=== PATIENT | female | born 1970 | race Caucasian/White ===

== ENCOUNTER 2021-06-03 21:45 | Emergency (ER) | payer MEDICAID | END 2021-06-04 00:10 | disposition left against medical advice (07) | LOC: ER 21:46 | DX: J45.909 Unspecified asthma, uncomplicated (principal); Z53.21 Procedure and treatment not carried out due to patient leaving prior to being seen by health care provider ==

== ENCOUNTER 2021-12-05 02:25 | Emergency (ER) | payer MEDICAID ==
[~2021-12-05] VITALS: Ht 167.6 cm; Wt 61.9 kg
[2021-12-05 02:31] VITALS: BP 126/75
--- NOTE | 2021-12-05 02:41 | NUR ---
PT MANNERISMS ARE AGRESSIVE IN TRIAGE. PT HAS A MINOR WITH HER. DR KEATING OK'D URINE TOXICOLOGY SCREEN.
[2021-12-05 02:52] LABS: CLARITY,URINE SLIGHTLY CLOUDY (Clear); COLOR,URINE YELLOW (Yellow); GLUCOSE, URINE NEGATIVE (Neg); KETONES,URINE NEGATIVE (Neg); LEUKOCYTE ESTERASE ,URINE NEGATIVE (Neg); NITRITES, URINE NEGATIVE (Neg); OCCULT BLOOD,URINE TRACE-INTACT (Neg); PROTEIN,URINE NEGATIVE (Neg); UROBILINOGEN,URINE 0.2 E.U/dL (0.2-1.0)
[2021-12-05 03:05] LABS: URINE AMPHETAMINE SCREEN NEGATIVE (Neg); URINE BARBITUATE SCREEN NEGATIVE (Neg); URINE BENZODIAZEPINES SCREEN NEGATIVE (Neg); URINE CANNABINOID SCREEN NEGATIVE (Neg); URINE COCAINE SCREEN NEGATIVE (Neg); URINE METHADONE SCREEN NEGATIVE (Neg); URINE OPIATE SCREEN NEGATIVE (Neg); URINE PHENCYCLIDINE SCREEN NEGATIVE (Neg)
[2021-12-05 03:10] LABS: UA COLLECTION TYPE CLN CATCH MIDSTREAM
[2021-12-05 03:12] LABS: BACTERIA,URINE 1+ /HPF (Neg); MUCUS STRANDS FEW /LPF (Neg); RBC,URINE 0-2 /HPF (0-2); SQUAMOUS EPITHELIAL CELL,UR MANY /LPF (FEW); WBC,URINE 0-4 /HPF (0-4)
== END 2021-12-05 04:29 | disposition left against medical advice (07) ==
LOC: ER 02:25
DX: M54.9 Dorsalgia, unspecified (principal); Z53.21 Procedure and treatment not carried out due to patient leaving prior to being seen by health care provider
CPT/HCPCS: 80305; 81001

== ENCOUNTER 2021-12-05 16:46 | Emergency (ER) | payer MEDICAID ==
[~2021-12-05] VITALS: Ht 170.2 cm; Wt 59.1 kg
[2021-12-05 16:56] VITALS: BP 117/79
--- NOTE | 2021-12-05 17:57 | NUR ---
minor at bedside. mother has aggressive tone and short when asked about medical hx.
--- NOTE | 2021-12-05 18:39 | NUR ---
CALL [facility] ([facility]) AND SPOKE WITH DIRECTOR OF COLLECTIONS AND ARCHIVES JAMILA REPORTING CONCERN OF WELL BEING OF MINOR WITH PT ASSUMED TO BE PTS DAUGHTER.
[2021-12-05 20:22] LABS: BASOPHILS # (AUTO) 0.2 X10'3 (0-0.2); EOSINOPHILS # (AUTO) 0.3 X10'3 (0-0.9); EOSINOPHILS % (AUTO) 3.4 % (0-6); HEMATOCRIT 39.5 % (35.0-45.0); HEMOGLOBIN 13.1 g/dl (12.0-16.0); LYMPHOCYTES # (AUTO) 2.8 X10'3 (1.1-4.8); LYMPHOCYTES % (AUTO) 34.5 % (21-51); MEAN CORPUSCULAR HEMOGLOBIN 30.1 PG (27.0-31.0); MEAN CORPUSCULAR HGB CONC 33.1 g/dL (33.0-36.5); MEAN CORPUSCULAR VOLUME 91.1 FL (78-98); MONOCYTES # (AUTO) 0.5 X10'3 (0-0.9); MONOCYTES % (AUTO) 6.8 % (2-12); NEUTROPHILS # (AUTO) 4.3 X10'3 (1.8-7.7); NEUTROPHILS % (AUTO) 53.3 % (42-75); PLATELET COUNT 305 X10'3 (140-440); RED BLOOD COUNT 4.34 X10'6 (4.20-5.60); RED CELL DISTRIBUTION WIDTH 13.7 % (11.5-14.5); WHITE BLOOD COUNT 8.1 X10'3 (4.5-11.0)
[2021-12-05 20:35] LABS: ALANINE AMINOTRANSFERASE 16 U/L (12-78); ALBUMIN 3.7 G/DL (3.4-5.0); ALBUMIN/GLOBULIN RATIO 1.2 (1.1-1.5); ALKALINE PHOSPHATASE 48 IU/L (46-116); ANION GAP 5 (8-16); ASPARTATE AMINO TRANSFERASE 15 U/L (10-37); BILIRUBIN,TOTAL 0.3 MG/DL (0.1-1.0); BLOOD UREA NITROGEN 13 MG/DL (7-18); BUN/CREATININE RATIO 15.9 (6.6-38.0); CALCIUM 8.7 MG/DL (8.5-10.1); CHLORIDE 106 MMOL/L (99-107); CREATININE 0.82 MG/DL (0.40-0.90); GLUCOSE 136 MG/DL (70-104); PHOSPHORUS 4.4 MG/DL (2.3-4.5); POTASSIUM 4.2 MMOL/L (3.5-5.1); SODIUM 142 MMOL/L (135-145); TOTAL CARBON DIOXIDE 30.8 MMOL/L (24-32); TOTAL PROTEIN 6.7 G/DL (6.4-8.2); eGFR 74 ML/MIN
[2021-12-05 20:44] LABS: URINE HCG NEGATIVE (NEG)
[2021-12-05 20:53] LABS: ETHANOL < 0.010 GM/DL (0.0-0.010)
--- NOTE | 2021-12-05 20:58 | NUR ---
PT BART GR NOTIFIED
[2021-12-05 21:07] LABS: URINE AMPHETAMINE SCREEN NEGATIVE (Neg); URINE BARBITUATE SCREEN NEGATIVE (Neg); URINE BENZODIAZEPINES SCREEN NEGATIVE (Neg); URINE CANNABINOID SCREEN NEGATIVE (Neg); URINE COCAINE SCREEN NEGATIVE (Neg); URINE METHADONE SCREEN NEGATIVE (Neg); URINE OPIATE SCREEN NEGATIVE (Neg); URINE PHENCYCLIDINE SCREEN NEGATIVE (Neg)
== END 2021-12-05 21:42 | disposition left against medical advice (07) ==
LOC: ER 16:47
DX: M54.9 Dorsalgia, unspecified (principal); G89.29 Other chronic pain; F17.200 Nicotine dependence, unspecified, uncomplicated; Z72.89 Other problems related to lifestyle; Z88.0 Allergy status to penicillin; Z88.8 Allergy status to other drugs, medicaments and biological substances
CPT/HCPCS: 36415; 80053; 80305; 80320; 81025; 83735; 84100; 85025; 99283

== ENCOUNTER 2021-12-06 06:38 | Emergency (ER) | payer MEDICAID ==
[~2021-12-06] VITALS: Ht 170.2 cm; Wt 59.1 kg
[2021-12-06] MEDS ORDERED: acetaminophen 325mg tablet PO ONE (07:50)
[2021-12-06] MEDS ORDERED: LIDOcaine 5% patch TP SCH (07:50)
[2021-12-06 08:04] VITALS: BP 128/75
[2021-12-06] MEDS: ibuprofen tablet 400 MG TABLET PO ONE ×2 (08:16→08:18)
== END 2021-12-06 08:20 | disposition left against medical advice (07) ==
LOC: ER 06:39
DX: G89.29 Other chronic pain (principal); M54.59 Other low back pain; Z88.0 Allergy status to penicillin; Z91.018 Allergy to other foods; Z91.013 Allergy to seafood
CPT/HCPCS: 99283

== ENCOUNTER 2022-10-17 06:19 | Emergency (ER) | payer MEDICAID ==
[~2022-10-17] VITALS: Ht 170.2 cm; Wt 50.2 kg
[~2022-10-17 06:19] MED LIST: CEPH-585 PO; CETI-90 PO; CLIN-214 PO
[2022-10-17 06:32] VITALS: BP 127/91; PULSE 95; RESP 18; TEMP 98.3; O2SAT 100
[2022-10-17] MEDS ORDERED: DOXY100C43 PO (07:41)
== END 2022-10-17 07:55 | disposition home or self-care (01) ==
LOC: ER 06:20
DX: J32.9 Chronic sinusitis, unspecified (principal); G89.29 Other chronic pain; M54.9 Dorsalgia, unspecified; F17.200 Nicotine dependence, unspecified, uncomplicated; Z88.0 Allergy status to penicillin; Z88.8 Allergy status to other drugs, medicaments and biological substances; Z91.018 Allergy to other foods; Z91.013 Allergy to seafood
CPT/HCPCS: 99283

== ENCOUNTER 2022-10-27 09:55 | Emergency (ER) | payer MEDICAID ==
[~2022-10-27] VITALS: Ht 167.6 cm; Wt 65.9 kg
[~2022-10-27 09:55] MED LIST changes: +DOXY100C43 PO
[2022-10-27 10:10] VITALS: BP 104/71; PULSE 91; RESP 20; TEMP 97.5; O2SAT 100
[2022-10-27] MEDS ORDERED: acetaminophen 325mg tablet PO ONE (11:05)
[2022-10-27] MEDS ORDERED: ondansetron 4mg rapidly disintigrating tab PO ONE (11:05)
[2022-10-27] MEDS ORDERED: ACET-1131 PO (11:06)
[2022-10-27] MEDS ORDERED: ONDA4TAB12 PO (11:06)
== END 2022-10-27 11:53 | disposition home or self-care (01) ==
LOC: ER 09:55
DX: R11.0 Nausea (principal); R51.9 Headache, unspecified; G89.29 Other chronic pain; M54.9 Dorsalgia, unspecified; Z88.0 Allergy status to penicillin; Z88.8 Allergy status to other drugs, medicaments and biological substances; Z91.013 Allergy to seafood
CPT/HCPCS: 99283